=== PATIENT | male | born 1975 | race Two or more races ===

== ENCOUNTER 2018-06-08 15:17 | Emergency (ER) | payer MEDICAID ==
[2018-06-08 15:34] VITALS: BP 136/90
== END 2018-06-08 15:30 | disposition left against medical advice (07) ==
DX: Z53.21 Procedure and treatment not carried out due to patient leaving prior to being seen by health care provider (principal)

== ENCOUNTER 2018-06-09 20:56 | Emergency (ER) | payer MEDICAID ==
[2018-06-09 21:03] VITALS: BP 144/96
--- NOTE | 2018-06-09 21:20 | EDPHY ---
H & P Stated Complaint: Wants detox, last drink 12hrs ago, spider bite on L ankle Source: Patient Exam Limitations: No limitations - Personal History Current Tetanus Diphtheria and Acellular Pertussis (TDAP): No - Medical/Surgical History Hx Asthma: No Hx Chronic Respiratory Disease: No Hx Diabetes: No Hx Cardiac Disease: No Hx Renal Disease: No Hx Cirrhosis: No Hx Alcoholism: Yes Hx HIV/AIDS: No Hx Splenectomy or Spleen Trauma: No Other PMH: hernia surgery - Social History Smoking Status: Current some day smoker Time Seen by Provider: 06/09/18 21:19 HPI/ROS: HPI: This is a 42-year-old male who presents with Chief Complaint: Wants detox, last drink 12hrs ago, spider bite on L ankle Location: Left ankle Quality: Spider bite Duration: 2 days ago Signs and Symptoms: no shortness of breath at rest, no shortness of breath on exertion, no cough, no chest pain, no palpitations, no lower extremity edema, no wheezing, no orthopnea, no paroxysmal nocturnal dyspnea, no fever, no hemoptysis, no carpal pedal spasms Timing: Acute, constant Severity: Mild Context: Patient has a history of alcoholism, presents requesting transfer to [facility] detox facility for treatment. He reports that his last drink was approximately 12 hr ago. He reports that he feels an aura, nauseous and jittery. Denies history of alcohol withdrawal seizures. He also complains of a left ankle bite on the medial aspect of a spider approximately 2 days ago. He did not see the spider bite him. He woke up with the bite. He reports that it is crusty and hurts to touch. Denies homicidal ideation, suicidal ideation, hallucinations. Modifying Factors: Comment: ROS: A comprehensive 10 system review of systems is otherwise negative aside from elements mentioned in the history of present illness. MEDICAL/SURGICAL/SOCIAL HISTORY: Medical history: Alcoholism Surgical history: Herniorrhaphy Social history: Homeless. Smoker. Divorce. CONSTITUTIONAL: Pleasant cooperative, untidy adult male, awake and alert, no obvious distress HEENT: Atraumatic and normocephalic, PERRL, EOMI. Nares patent; no rhinorrhea; no nasal mucosal edema. Tympanic membranes clear. Oropharynx clear, no exudate and moist pink mucosa. Airway patent. No lymphadenopathy. No meningismus. Cardiovascular: Normal S1/S2, mild tachycardia, regular rhythm, without murmur rub or gallop. PULMONARY/CHEST: Symmetrical and nontender. Clear to auscultation bilaterally. Good air movement. No accessory muscle usage. ABDOMEN: Soft, nondistended, nontender, no rebound, no guarding, no peritoneal signs, no masses or organomegaly. No CVAT. EXTREMITIES: 2/2 pulses, strength 5/5, wearing wet malodorous shoes. no deformities, no clubbing, no cyanosis or edema. NEUROLOGICAL: no focal neuro deficits. GCS 15. SKIN: Warm and dry, 5 mm scabbed area on the left medial ankle,no surrounding erythema, no fluctuance, no discharge. no rash. Good capillary refill. (Annie Nelson) Constitutional: Initial Vital Signs Temperature (C) 36.4 C 06/09/18 21:00 Heart Rate 105 H 06/09/18 21:00 Respiratory Rate 18 06/09/18 21:00 Blood Pressure 144/96 H 06/09/18 21:00 O2 Sat (%) 97 06/09/18 21:00 O2 Delivery Mode Room Air Allergies/Adverse Reactions: melon Allergy (Verified 06/09/18 21:00) Opioids - Morphine Analogues Allergy (Verified 06/09/18 21:00) Home Medications: Medication Instructions Recorded Cephalexin [Keflex (*)] 500 mg PO TID #21 cap 06/09/18 Medical Decision Making ED Course/Re-evaluation: Vital signs reviewed and show mild tachycardia upon arrival. CIWA =2; given p.o. Librium 50 mg in the ER and Librium prepack when [facility]; cab was called Patient given Keflex for insect bite with local reaction due to high risk; no kendell abscess/cellulitis/necrosis. No signs of neurovascular compromise/tenting of skin/compartment syndrome/ extremities and joints examined above and below area of concern and are neurovascularly intact/alcohol withdrawal seizures/delirium tremens. This patient was seen under the supervision of my secondary supervising physician. I evaluated care for this patient independently. Discussed this patient with Dr. Espinoza. (Annie Nelson) Differential Diagnosis: Differential diagnosis includes but is not limited to intoxicant use, alcohol use, alcohol withdrawal seizures, delirium tremens, cellulitis, abscess. (Annie Nelson) Other Provider: The patient was evaluated and managed by the Physician Diesel Pile Driver Operator. My co- signature indicates that I have reviewed this chart and I agree with the findings and plan of care as documented. I am the secondary supervising physician. (Laura Espinoza) - Data Points Medications Given: Discontinued Medications Cephalexin (Keflex 500 Mg Prepack#4) 1 btl TAKEHOME EDNOW ONE PRN Reason: Protocol Stop: 06/09/18 21:49 Last Admin: 06/09/18 22:02 Dose: 1 btl Chlordiazepoxide (Librium 25 Mg Prepack#6) 1 btl TAKEHOME EDNOW ONE Stop: 06/09/18 21:51 Last Admin: 06/09/18 22:02 Dose: 1 btl Chlordiazepoxide HCl (Librium) 50 mg PO EDNOW ONE Stop: 06/09/18 21:50 Last Admin: 06/09/18 22:01 Dose: 50 mg Departure - Departure Disposition: Home, Routine, Self-Care Clinical Impression: Alcohol abuse, Alcohol withdrawal syndrome without complication, Insect bite of left ankle with local reaction Condition: Good Instructions: Chlordiazepoxide/Clidinium (By mouth), Abuse of Alcohol (ED), Alcohol Withdrawal (ED) Additional Instructions: Take antibiotic as directed until complete. Do not skip a dose Washes spider bite daily with antibacterial soap and water, pat dry, keep covered with clean sterile dressing until fully healed. Please refrain from drinking alcohol. You are medically cleared to be [facility] with Librium prepack. Referrals: Verito Gentile NP [Primary Care Provider] - As per Instructions [facility] [Outside] - As per Instructions Prescriptions: Cephalexin [Keflex (*)] 500 mg PO TID #21 cap
[2018-06-09] MEDS ORDERED: CEPHALEXIN 500MG PREPACK#4 BTL TAKEHOME ONE (21:48)
[2018-06-09] MEDS ORDERED: chlordiazePOXIDE 25 MG CAP PO ONE (21:49)
[2018-06-09] MEDS ORDERED: CHLORDIAZEPOXIDE 25MG PREPK#6 BTL TAKEHOME ONE (21:50)
== END 2018-06-09 22:28 | disposition home or self-care (01) ==
LOC: EEVIPCON 20:56
DX: S90.562A Insect bite (nonvenomous), left ankle, initial encounter (principal); F10.239 Alcohol dependence with withdrawal, unspecified

== ENCOUNTER 2018-06-12 22:07 | Inpatient (IN) | payer MEDICAID ==
--- NOTE | 2018-06-12 22:29 | EDPHY ---
H & P Stated Complaint: Sore on left ankle Time Seen by Provider: 06/12/18 22:07 HPI/ROS: CHIEF COMPLAINT: "Spider bite left ankle" HISTORY OF PRESENT ILLNESS: 42-year-old male arrives via ambulance for complaints of left dorsal medial lesion possible spider bite. He was seen the ER 3 days ago for acute alcohol detoxification and at that time there was mention of similar lesion present for 2 days prior. He does not remember being in the ER 3 days ago. States he is currently unable to bear weight on this. He was walking home from his job at [employer] but was able to walk any further secondary to pain He denies trauma such as fall or twisting injury. Denies fall from height. Denies fever chills. Denies nausea or vomiting. REVIEW OF SYSTEMS: 10 systems reviewed and negative with the exception of the elements mentioned in the history of present illness PAST MEDICAL & SURGICAL HISTORY: No pertinent medical or surgical history SOCIAL HISTORY: History of alcoholism last drink 3 days ago PHYSICAL EXAM (Prior to examination, patient consented to physical exam, hands were washed and my usual and customary physical exam procedures followed) 1) GENERAL: Well-developed, well-nourished, alert and oriented. Appears to be in no acute distress. 2) HEAD: Normocephalic, atraumatic 3) HEENT: Pupils equal, round, reactive to light bilaterally. Sclera anicteric. 4) NECK: Full range of motion, no meningeal signs. 5) LUNGS: Clear auscultation bilaterally, no wheezes, no rhonchi, no retractions. 6) HEART: Regular rate and rhythm, no murmur, no heave, no gallop. 7) ABDOMEN: No guarding, no rebound, no focal tenderness, negative McBurney's, negative Blas's, negative Rovsing's, negative peritoneal sign, 8) MUSCULOSKELETAL: Left anteromedial ankle furuncular lesion which is tender. There is no surrounding erythema, induration, crepitus. No lymphangitic streaking. He is exquisitely tender to palpation in the surrounding ankle and foot, screams in pain. High level of discomfort with dorsiflexion plantar flexion of the foot. The compartments are soft. 9) BACK: , no visual or palpable abnormality. 10) SKIN: No rash, no petechiae. 11) Psychiatric: Patient is oriented X 3, there is no agitation. DIFFERENTIAL DIAGNOSIS: In no particular include but limited to septic arthritis, compartment syndrome, abscess, cellulitis, necrotizing fasciitis, infectious tendinitis - Personal History Current Tetanus/Diphtheria Vaccine: Yes Current Tetanus Diphtheria and Acellular Pertussis (TDAP): Yes - Medical/Surgical History Hx Asthma: No Hx Chronic Respiratory Disease: No Hx Diabetes: No Hx Cardiac Disease: No Hx Renal Disease: No Hx Cirrhosis: No Hx Alcoholism: Yes Hx HIV/AIDS: No Hx Splenectomy or Spleen Trauma: No Other PMH: hernia surgery, right facial surgery, tonsillectomy - Social History Smoking Status: Current some day smoker Constitutional: Initial Vital Signs Temperature (C) 37.1 C 06/12/18 22:13 Heart Rate 98 06/12/18 22:13 Respiratory Rate 18 06/12/18 22:13 Blood Pressure 152/89 H 06/12/18 22:13 O2 Sat (%) 96 06/12/18 22:13 O2 Delivery Mode Room Air Allergies/Adverse Reactions: melon Allergy (Verified 06/12/18 22:17) Opioids - Morphine Analogues Allergy (Verified 06/12/18 22:17) Home Medications: Medication Instructions Recorded NK [No Known Home Meds] 06/12/18 ED Images - Extremities Feet Top: 1 - Lesion Medical Decision Making - Diagnostics Imaging Results: Imaging Impressions Ankle X-Ray 06/12/18 22:22 Impression: No definite fracture of the left ankle. Foot X-Ray 06/12/18 22:26 Impression: No fracture or degenerative changes of the left foot. Images reviewed myself ED Course/Re-evaluation: Reviewed patient's old medical records. Patient was also seen and examined by Dr. Rick Rodriguez in the ER. Specific etiology the patient's pain is incompletely clear at this time. Doubt compartment syndrome. We discussed well possible etiologies including, but not limited to, infectious tendinitis, necrotizing fasciitis, septic arthritis, septic arthritis. Patient unable to bear weight. Plan on admission. 11:13 p.m.: Consultation with Dr. Ventura who will admit patient - Data Points Laboratory Results: Laboratory Results 06/12/18 22:10 06/12/18 22:10 06/12/18 06/12/18 22:10 22:10 WBC 6.64 10^3/uL 10^3/uL (3.80-9.50) RBC 5.11 10^6/uL 10^6/uL (4.40-6.38) Hgb 17.4 g/dL g/dL (13.7-17.5) Hct 48.6 % % (40.0-51.0) MCV 95.1 fL fL (81.5-99.8) MCH 34.1 pg pg (27.9-34.1) MCHC 35.8 g/dL g/dL (32.4-36.7) RDW 12.9 % % (11.5-15.2) Plt Count 125 10^3/uL L 10^3/uL (150-400) MPV 9.3 fL fL (8.7-11.7) Neut % (Auto) 50.8 % % (39.3-74.2) Lymph % (Auto) 33.3 % % (15.0-45.0) [place] % (Auto) 13.3 % H % (4.5-13.0) Eos % (Auto) 1.7 % % (0.6-7.6) Baso % (Auto) 0.6 % % (0.3-1.7) Nucleat RBC Rel Count 0.0 % % (0.0-0.2) Absolute Neuts (auto) 3.38 10^3/uL 10^3/uL (1.70-6.50) Absolute Lymphs (auto) 2.21 10^3/uL 10^3/uL (1.00-3.00) Absolute Monos (auto) 0.88 10^3/uL H 10^3/uL (0.30-0.80) Absolute Eos (auto) 0.11 10^3/uL 10^3/uL (0.03-0.40) Absolute Basos (auto) 0.04 10^3/uL 10^3/uL (0.02-0.10) Absolute Nucleated RBC 0.00 10^3/uL 10^3/uL (0-0.01) Immature Gran % 0.3 % % (0.0-1.1) Immature Gran # 0.02 10^3/uL 10^3/uL (0.00-0.10) ESR 3 MM/HR MM/HR (0-15) Sodium 142 mEq/L mEq/L (135-145) Potassium 4.0 mEq/L mEq/L (3.3-5.0) Chloride 104 mEq/L mEq/L (97-110) Carbon Dioxide 24 mEq/l mEq/l (22-31) Anion Gap 14 mEq/L mEq/L (6-14) BUN 13 mg/dL mg/dL (7-23) Creatinine 1.1 mg/dL mg/dL (0.7-1.3) Estimated GFR > 60 Glucose 93 mg/dL mg/dL (70-100) Calcium 9.5 mg/dL mg/dL (8.5-10.4) C-Reactive Protein < 5.0 mg/L mg/L (<10.0) Procalcitonin Pending Ethyl Alcohol 312 mg/dL H mg/dL (0-10) Medications Given: Discontinued Medications Cefazolin Sodium/Dextrose (Ancef 1 Gm (Premix)) 50 mls @ 200 mls/hr IV EDNOW ONE PRN Reason: Protocol Stop: 06/12/18 22:50 Last Admin: 06/12/18 22:56 Dose: 50 mls Departure - Departure [facility] Acute Condition: Fair Referrals: NONE *PRIMARY CARE P,. [Unknown] - As per Instructions
[2018-06-12 22:44] LABS: PLATELET COUNT 125 10^3/uL (150-400)
[2018-06-13] MEDS ORDERED: ACETAMINOPHEN 325 MG TAB PO PRN (00:06)
[2018-06-13] MEDS ORDERED: ONDANSETRON 4 MG/2 ML VIAL IVP PRN (00:06)
[2018-06-13] MEDS ORDERED: diphenhydrAMINE 25 MG CAP PO PRN (00:06)
[2018-06-13] MEDS ORDERED: ONDANSETRON DISINTEGRATING 4 MG TAB PO PRN (00:06)
[2018-06-13] MEDS: NS 1,000 ML IV SCH ×3 (01:13→21:42)
[2018-06-13] MEDS: LORazepam 2 MG/ML INJ IVP PRN ×5 (01:13→18:30)
[2018-06-13] MEDS: HYDROCODONE/APAP 5/325 TAB PO PRN ×3 (02:12→14:36)
--- NOTE | 2018-06-13 05:17 | GHP ---
DATE OF ADMISSION: 06/12/2018 Patient provides history, is a fair historian. EMR was reviewed and case discussed with ED provider. CHIEF COMPLAINT: Left ankle pain. HISTORY OF PRESENT ILLNESS: This is a pleasant 42-year-old gentleman with past medical history signi ficant for alcohol dependence and hyperlipidemia, who presents to the emergency department today via EMS after he was trying to walk home from work and was unable to walk any longer due to severe sharp pain in the dorsum of his left foot, ankle, and distal lower leg. The patient reports approximately 5 days ago he developed a wound over his left ankle. He states bashir t he has had increasing erythema, swelling, pain, and drainage since that time. Per ED note, the patient was seen in the emergency department and monitored for alcohol intoxication and had reported the wound there several days prior to that. The patient is unsure if he had an inju ry or it was a spider bite or some other insect bite. He reports that he has had increasing drainage , surrounding erythema, subjective fevers and chills at home. He has not taken any [id number] medications for pain control. He reports the pain is diffuse and exquisite even superficially on the dorsum of the foot and just proximally past the wound on his lower extremity. The patient denies an y calf or lower leg swelling. REVIEW OF SYSTEMS: GI: Patient reports diffuse abdominal discomfort that has resolved with a dose o f Garland received on the floor. CV: Patient reports occasional chest pain while at rest, none curren tly. Ten systems reviewed and otherwise negative except as above. ALLERGIES: Melons and morphine. HOME MEDICATIONS: None. PAST MEDICAL HISTORY: 1. Patient reports an episode of a seizure secondary to Wellbutrin. He denies any history of withdr awal seizures. 2. Alcohol dependence and ER visits for intoxication. 3. Hyperlipidemia, not on therapy. PAST SURGICAL HISTORY: Significant for hernia repair, right facial reconstruction, tonsillectomy, ad enoidectomy. FAMILY HISTORY: Significant for diabetes, hypertension, cirrhosis (nonalcoholic), COPD, CHF, cancer, CVA. Grandfather with OK at age 54. SOCIAL HISTORY: Patient does smoke occasional cigarettes. He also drinks heavily. He is employed a nd works at [employer]. He does not have any history of IV drug use, but admits to using what was report ed to be cocaine several days ago. CODE STATUS: Full. PHYSICAL EXAMINATION: VITAL SIGNS: Upon arrival to the ED, blood pressure 152/89, heart rate is 98, respiratory rate 18, O2 saturation 96% on room air, temperature 37.1. Current vital signs available , blood pressure 125/83, heart rate 76, respiratory rate 16, O2 saturation 96% on room air, temperatu re 36.6. GENERAL: No acute distress while lying in bed. Patient is a pleasant adult gentleman who is lying quietly in bed. HEAD: Normocephalic, atraumatic. EYES: Extraocular muscles are intact. Pupils equal, round, decreased reactivity to light bilaterally, but symmetric. No scleral icterus or conjunctival injection. ENT: Mucous membranes appear moist. No oropharyngeal erythema or exudates . NECK: Supple. Trachea midline. Patient does have enlargement of the submandibular lymph node wi th some tenderness to palpation, but no enlargement seen by view of oropharynx. CV: Regular rate an d rhythm, slightly bradycardic in the 60s. No murmurs, rubs, or gallops appreciated. RESPIRATORY: Unlabored breathing. Lungs are clear to auscultation bilaterally. No wheezes, rales, or rhonchi. A BDOMEN: Positive bowel sounds. Soft, nontender to palpation. No rebound, guarding, or masses appre ciated. : No suprapubic tenderness to palpation. No Watson catheter in place. EXTREMITIES: Sherry ent moves both upper extremities and right lower extremity without any difficulties. The left lower extremity causes significant pain with any kind of movement. There is limited range of motion also d ue to pain. The patient is able to dorsiflex with limitation due to pain. He has exquisite tenderne ss to palpation even with light touch on his foot over his ankle in the distal left lower extremity. There is no calf swelling or lower extremity pain. Soft tissue is without any tension and is soft. Patient has 2+ pedal pulses present and symmetric. Cap refill is less than 2 seconds. There is an ulcerated scabbed lesion right in the middle of the dorsal ankle. There is no drainage. The skin banda rrounding the lesion over the ankle proximal to the ankle as well as the foot there is just a faint h int of erythema, but there is no induration or fluctuance present. NEUROLOGIC: Sensation is intact to both feet. Patient with hypersensitivity to touch over the foot, ankle, and distal lower extremit y on the left. Skin wound as noted above. Neuro grossly nonfocal. No facial drooping. Moves all e xtremities as noted above. PSYCHIATRIC: Patient does appear a little bit anxious, but he is pleasan t and cooperative. LABORATORY STUDIES: WBC 6.64, H and H is 17.4 and 48.6, MCV of 95.1, platelet count 125, no bands. ESR of 3. Sodium is 142, potassium 4.0, chloride 104, CO2 24, anion gap 14, BUN 13, creatinine is 1. 1, GFR greater than 60, glucose 93, calcium 9.5. CRP is less than 5. Procalcitonin 0.05. Ethyl alc ohol 312. IMAGING: Ankle and foot x-rays image and report reviewed myself, negative for any evidence of a frac ture in the left ankle and no fracture or degenerative change in the left. Normal alignment. ASSESSMENT AND PLAN: Pleasant 42-year-old gentleman with a history of alcohol dependence who present s to the emergency department with a five-day history of a left dorsum dorsal ankle wound and subsequ ent development of severe pain with movement, ambulation, flexion, or extension. 1. Left ankle pain. Differential diagnosis including strain versus tenosynovitis versus a celluliti s. The patient was given a dose of cefazolin in the emergency department. He has no white count. E SR and CRP are negative, but he does have an area of erythema that extends surrounding this wound and he is quite exquisitely tender. We will continue with cefazolin for coverage at this point. Blood cultures were drawn in the emergency department. We will follow. We will have the patient elevate h is left foot as tolerated. Continue antibiotics as noted above. Pending reassessment in the morning , consideration for orthopedic consultation versus additional imaging. Garland available p.r.n. pain. 2. Alcohol dependence. Patient's alcohol level is elevated. Ativan will be available p.r.n. At th is time does not appear to be withdrawing, but will monitor closely and add a CIWA protocol if indica eun. 3. Thrombocytopenia, likely related to patient's alcohol consumption and dependence. No evidence of active bleeding. Will continue to monitor. Holding anticoagulation pending reassessment in the [facility] for potential need for surgical assessment. 4. History of seizure, which patient reports was due to Wellbutrin. Unsure if he was also imbibing in alcohol at this time as well. The patient is no longer on Wellbutrin. His alcohol level is eleva eun, but will place on CIWA protocol if indicated after reassessment. 5. Hyperlipidemia. The patient is not currently on statins. Patient should follow up with his [facility] care provider. 6. History of chest pain while at rest. The patient currently denies any active chest pain. Overal l, he is low risk for acute coronary syndrome, but will monitor. Again, will have patient follow up with his PCP for his reported history of hyperlipidemia. 7. Fluid, electrolyte, nutrition. Intravenous fluids for supplementation. N.p.o. except for ice ch ips. Monitor electrolytes, replace if needed. 8. Core status is full. 9. Disposition. Patient admitted to observation status on the medical floor at this time for contin ued antibiotics and repeat assessment for potential imaging versus surgical consultation. 10. Prophylaxis. SCDs to the right leg only as tolerated. Monitor closely for any evidence of alco hol withdrawal should the patient require CIWA protocol placement. /[id number]/MODL
[2018-06-13 05:23] LABS: PLATELET COUNT 100 10^3/uL (150-400)
[2018-06-13] MEDS: ceFAZolin 0.5 GM in NS 50 ML IV SCH ×2 (06:32→14:36)
[2018-06-13] MEDS: NICOTINE 14 MG/24 HR PATCH TD SCH (09:17)
[2018-06-13] MEDS ORDERED: FLUMAZENIL 0.5 MG/5 ML MDV IVP PRN (12:52)
--- NOTE | 2018-06-13 14:04 | WOCRNPDOC ---
WOCRN Advanced Assessment Note - Skin Integrity Problem, Advanced Assess Left Anterior Ankle Dressing Type: Allevyn Life Dressing Description: Clean/Dry, Intact Exudate Amount: Scant Exudate Characteristic(s): Sanguinopurulent Integumentary Issue Intervention: Visualized Under Dressing Maicol Wound Tissue: Erythema, Erythema Marked by Wound RN, Painful/Tender Wound Edges: Epibole Site Measurement - Head-to-Toe Length X Width X Depth (cm): 0.4x0.3x0.3 Skin Integrity Problem Comment: Wound of unknow etiology with scar tissue/hard maicol wound tissue. Wound and entire left lower leg is painful out of proportion to clinical findings. Patient really was unable to let wound RN fully assess wound due to pain, although the area was gently cleaned with water and papertowel to try and visualize wound bed. There is maicol wound erythema to 1 cm and it does not appear cellulitic. Michelle Tolentino and Katerine notifed. Dressing was replaced. Ultrasound does not reveal any abcess so silvasorb and foam secondary dressing will be written for. Wound care will follow later this week/early next week if patient is still in hospital.
[2018-06-13] MEDS: FAMOTIDINE 20 MG TAB PO SCH ×2 (14:36→20:41)
--- NOTE | 2018-06-13 15:44 | ASMTCMCOM ---
CM Note CM Note Notes: Pt in for ankle wound after he could no longer walk on leg. Wound care following. No therapies ordered. Chart review indicates pt works at [employer]. Pt in [facility] ED 06/09/18 and 06/08/18 for ETOH detox, CIWA today 20. CM to follow. Date Signed: 06/13/2018 03:44 PM Electronically Signed By:KEREN Flores
[2018-06-13] MEDS: THIAMINE HCL 500 MG in NS 100 ML IV SCH (16:15)
--- NOTE | 2018-06-13 18:02 | HOSPPROG ---
Hospitalist Progress Note Assessment/Plan: The patient is a 42-year-old male with PMH alcoholism who was admitted for acute left ankle pain and nonhealing wound. ASSESSMENT/PLAN: Acute left ankle pain Acute left ankle wound Alcohol withdrawal, acute Alcohol dependence -initiate CIWA protocol. Since CIWA score is high, transfer to ICU for frequent monitoring. -IV cefazolin. -If pain does not improve, may consider MRI L ankle to r/o osteomyelitis. XR ankle was unremarkable. -Counseled on alcohol cessation. 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 -Answered pt's questions. -Ordered US today - reviewed results - no abscess. -Discussed case w/ RNs, Wound care. -CM consult for alcohol cessation ongoing support/resources. VTE prophylaxis: SCDs. Code Status: Full. Status: Changed in patient for greater than 2 midnight stay. Disposition: ICU with discharge anticipated after a few days to a week, depending on how pt does with withdrawal/detox ____ SUBJECTIVE: Pt c/o severe pain in L ankle. Pt c/o withdrawal symptoms. OBJECTIVE: Physical Exam: General: The patient is a male who is alert and in no acute distress. HEENT: normocephalic, extraocular movements intact, conjunctivae clear. Mucous membranes moist. Neck: trachea midline, no visible masses. Abd: soft and nondistended. Musculoskeletal: Normal muscle tone/bulk. Neuro: cranial nerves II XII grossly intact. Intact gross motor and sensory function. Psych: Appropriate mood and appropriate affect. Skin: No pallor. No petechiae. No erythema of left lower leg. +dressing noted anterior left ankle, CDI Heme/lymph: No peripheral edema at bilateral lower extremities. Labs/Imaging/Other Tests: Personally reviewed/interpreted. X-ray left ankle and foot-no fracture or dislocation. No evidence of osteomyelitis. Ultrasound left lower extremity-no abscess. Objective: Vital Signs Temp Pulse Resp BP Pulse Ox 36.6 C 80 16 138/83 H 94 06/13/18 16:00 06/13/18 16:00 06/13/18 16:00 06/13/18 16:00 06/13/18 16:00 - Time Spent With Patient Time Spent with Patient: greater than 35 minutes Time Spent with Patient: Greater than 35 minutes spent on this patients care, greater than 50% of time spent counseling, educating, and coordinating care regarding the above mentioned plan. ICD10 Worksheet Patient Problems: Problems Problem Status Onset Alcohol withdrawal Acute - ICD10 Problem Qualifiers (1) Alcohol withdrawal Qualifiers: Complication of substance-induced condition: uncomplicated Qualified Code(s ): F10.230 - Alcohol dependence with withdrawal, uncomplicated
[2018-06-14] MEDS: NS 1,000 ML IV SCH (05:21)
[2018-06-14] MEDS: FAMOTIDINE 20 MG TAB PO SCH ×2 (09:15→20:04)
[2018-06-14] MEDS: NICOTINE 14 MG/24 HR PATCH TD SCH (09:15)
[2018-06-14] MEDS: THIAMINE HCL 500 MG in NS 100 ML IV SCH (09:17)
[2018-06-14] MEDS: LORazepam 2 MG/ML INJ IVP PRN ×5 (09:26→23:48)
[2018-06-14] MEDS: HYDROCODONE/APAP 5/325 TAB PO PRN ×4 (09:26→23:56)
--- NOTE | 2018-06-14 10:37 | PDMN ---
Medical Necessity Medical necessity: Changed from Obs to IP 06/13/18 per and [facility] M-595 ( Substance- Related Disorders); los > 2mn; eval and tx alcohol withdrawal with CIWA 20, tremor, auditory and visual hallucinations, and agitation as well as non healing wound to L ankle; requiring close monitoring in ICU, CIWA protocol, IV ABX, and IVF; hx of seizures.
--- NOTE | 2018-06-14 15:08 | ASMTCMCOM ---
CM Note CM Note Notes: Patient looking for resources [place]. He had been in the [facility] coordinated entry but then left town. This CM encouraged him to return to their system in order to get into [place] housing. On discharge patient will need Residential bed; 2 bus tokens- for [facility]; List of warming Shelters or a phone# he can call. Patient still going through [facility] W/D. Date Signed: 06/14/2018 03:07 PM Electronically Signed By:Amanda Murrieta LCSW
--- NOTE | 2018-06-14 19:16 | HOSPPROG ---
Hospitalist Progress Note Assessment/Plan: The patient is a 42-year-old male with PMH alcoholism who was admitted for acute left ankle pain and nonhealing wound. ASSESSMENT/PLAN: Acute left ankle pain Acute left ankle wound Alcohol withdrawal, acute Alcohol dependence -initiated CIWA protocol. Since pt was doing well and did not require too much Ativan overnight, downgraded to med surg. -IV cefazolin. -Pain in leg not improved. MRI ankle tomorrow -Counseled on alcohol cessation. 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 -Answered pt's questions. -Discussed case w/ RNs. -CM consult for alcohol cessation ongoing support/resources. -resume home meds (supplements) per pt request VTE prophylaxis: SCDs. Code Status: Full. Status: Changed in patient for greater than 2 midnight stay. Disposition: medsurg with discharge anticipated after a few days to a week, depending on how pt does with withdrawal/detox ____ SUBJECTIVE: Pt c/o severe pain in L ankle. Pt c/o withdrawal symptoms. OBJECTIVE: Physical Exam: General: The patient is a male who is alert and in no acute distress. HEENT: normocephalic, extraocular movements intact, conjunctivae clear. Mucous membranes moist. Neck: trachea midline, no visible masses. Abd: soft and nondistended. Musculoskeletal: Normal muscle tone/bulk. Neuro: cranial nerves II XII grossly intact. Intact gross motor and sensory function. Psych: Appropriate mood and appropriate affect. Skin: No pallor. No petechiae. No erythema of left lower leg. +dressing noted anterior left ankle, CDI Heme/lymph: No peripheral edema at bilateral lower extremities. Labs/Imaging/Other Tests: Personally reviewed/interpreted. X-ray left ankle and foot-no fracture or dislocation. No evidence of osteomyelitis. Ultrasound left lower extremity-no abscess. Objective: Vital Signs Temp Pulse Resp BP Pulse Ox 36.7 C 63 14 137/85 H 94 06/14/18 15:59 06/14/18 15:59 06/14/18 15:59 06/14/18 15:59 06/14/18 15:59 06/13/18 06/14/18 06/15/18 05:59 05:59 05:59 Intake Total 2298 1002 Output Total 1100 Balance 2298 -98 ICD10 Worksheet Patient Problems: Problems Problem Status Onset Alcohol withdrawal Acute - ICD10 Problem Qualifiers (1) Alcohol withdrawal Qualifiers: Complication of substance-induced condition: uncomplicated Qualified Code(s ): F10.230 - Alcohol dependence with withdrawal, uncomplicated
[2018-06-14] MEDS ORDERED: TETRAHYDROZOLINE 0.05% 15 ML OPHT.BTL EACHEYE PRN (20:18)
[2018-06-14] MEDS ORDERED: IBUPROFEN 200 MG TAB PO PRN (20:18)
[2018-06-14] MEDS ORDERED: GADOBUTROL 10 ML VIAL IVP ONE (21:27)
[2018-06-15] MEDS: NICOTINE 14 MG/24 HR PATCH TD SCH (08:39)
[2018-06-15] MEDS: THIAMINE HCL 500 MG in NS 100 ML IV SCH (08:39)
[2018-06-15] MEDS: FAMOTIDINE 20 MG TAB PO SCH ×2 (08:39→20:47)
[2018-06-15] MEDS: HYDROCODONE/APAP 5/325 TAB PO PRN ×3 (08:40→20:52)
[2018-06-15] MEDS: LORazepam 2 MG/ML INJ IVP PRN ×2 (08:40→12:01)
[2018-06-15] MEDS ORDERED: Herbals/Supplements -Info Only PO SCH (09:00)
--- NOTE | 2018-06-15 13:43 | ASMTCMCOM ---
CM Note CM Note Notes: Chart reviewed . Spoke to patient at great length,he was doing well working at [employer], connected to the [employer] and was going to school. He reports he was arrested and had to go back to [place] and lost his space at the [employer]. He is very depressed and hopeless. I have placed a call to our behavioural Health Nurse Nohemy Villalpando. I will provide him with the alcohol resource packet and will look for some clothing for him. I will provide hime with resources for warm food as well. CM available should other needs arise. Plan: Likely dc to custodial when medically cleared for discharge to home. Date Signed: 06/15/2018 01:42 PM Electronically Signed By:Kerry Claire RN
[2018-06-15] MEDS ORDERED: LORazepam 1 MG TAB PO PRN ×2 (18:21→18:40)
--- NOTE | 2018-06-15 19:21 | HOSPPROG ---
Hospitalist Progress Note Assessment/Plan: The patient is a 42-year-old homeless male with PMH alcoholism who was admitted for acute left ankle pain and nonhealing wound. ASSESSMENT/PLAN: Acute left ankle pain, improved -2/2 tendonitis in ankle/foot Acute left ankle wound - treated, healing Alcohol withdrawal, acute -resolved Alcohol dependence Homelessness Psychiatric disorder with anxiety and insomnia -DC CIWA protocol, despite pt's protests that he needs Ativan, as he is clearly not in withdrawal. If he does withdraw, he can get clonidine instead of Ativan tonight. Explained to pt that we only give Ativan or Librium for acute withdrawal and it is no longer needed. Explained it has undesirable retirement side effects. -Start Wellbutrin for anxiety -- note that he wants the 12 hr version bc he has insomnia. -Got IV cefazolin x 3 days. Switch to po Keflex QID x 2 days for 5 days total Abx. -Counseled on alcohol cessation. 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 Specifically, he is homeless and has psychiatric illness including extreme anxiety and has poor support. -Recommend that pt complete the process of getting established with [facility] because it is very important he get psychiatric care. -Answered pt's questions. -Discussed case w/ RNs. -DC IV meds. -CM consulted for alcohol cessation ongoing support/resources. They are looking into getting him to a homeless alf in [facility]. -Encouraged pt to ambulate. I suspect he can walk more, but he is VTE prophylaxis: SCDs. Code Status: Full. Status: Inpatient. Disposition: DC tomorrow to homeless alf. ____ SUBJECTIVE: Pt c/o continued pain in L ankle but it is improved. He has walked to the bathroom and back with a cane. He says he is in withdrawal still, and once "was in withdrawal for 10 days." He feels he is hallucinating -- hearing sounds and that colors on TV look brighter than normal. He insists he needs Ativan for anxiety. OBJECTIVE: Physical Exam: General: The patient is a calm male who is alert and in no acute distress. HEENT: normocephalic, extraocular movements intact, conjunctivae clear. Mucous membranes moist. Neck: trachea midline, no visible masses. Abd: soft and nondistended. Musculoskeletal: Normal muscle tone/bulk. Neuro: cranial nerves II XII grossly intact. Intact gross motor and sensory function. Psych: Appropriate mood and flat affect. Skin: No pallor. No petechiae. No erythema of left lower leg. +dressing noted anterior left ankle, CDI Heme/lymph: No peripheral edema at bilateral lower extremities. Labs/Imaging/Other Tests: Personally reviewed/interpreted. X-ray left ankle and foot-no fracture or dislocation. No evidence of osteomyelitis. Ultrasound left lower extremity-no abscess. MRI L ankle - no osteomyelitis. +tendon inflammation. Objective: Vital Signs Temp Pulse Resp BP Pulse Ox 36.5 C 69 16 129/85 H 96 06/15/18 16:09 06/15/18 16:09 06/15/18 16:09 06/15/18 16:09 06/15/18 16:09 06/14/18 06/15/18 06/16/18 05:59 05:59 05:59 Intake Total 2298 1302 500 Output Total 1100 1000 Balance 2298 202 -500 - Time Spent With Patient Time Spent with Patient: greater than 35 minutes Time Spent with Patient: Greater than 35 minutes spent on this patients care, greater than 50% of time spent counseling, educating, and coordinating care regarding the above mentioned plan. - Pending Discharge Pending Discharge Within 24 Hours: Yes Pending Discharge Date: 06/16/18 Pending Discharge Time: 11:00 ICD10 Worksheet Patient Problems: Problems Problem Status Onset Alcohol withdrawal Acute - ICD10 Problem Qualifiers (1) Alcohol withdrawal Qualifiers: Complication of substance-induced condition: uncomplicated Qualified Code(s ): F10.230 - Alcohol dependence with withdrawal, uncomplicated
[2018-06-15] MEDS: CEPHALEXIN 500 MG CAP PO SCH (23:30)
[2018-06-16 08:07] VITALS: BP 128/86
[2018-06-16] MEDS: FAMOTIDINE 20 MG TAB PO SCH (08:50)
[2018-06-16] MEDS: CEPHALEXIN 500 MG CAP PO SCH (08:50)
[2018-06-16] MEDS: NICOTINE 14 MG/24 HR PATCH TD SCH (08:51)
[2018-06-16] MEDS ORDERED: THIAMINE HCL 100 MG TAB PO SCH (09:00)
[2018-06-16] MEDS ORDERED: buPROPion SR 150 MG TAB PO SCH (09:00)
--- NOTE | 2018-06-16 10:19 | ASMTLACE ---
[facility]CAR Length of stay for Answers: 3 days current admission Acuity / Level of Answers: Yes Care: Did the patient have an inpatient admission? Comorbidities - select Answers: Opioid dependence all that apply / Chronic pain Other Notes: HLD; Seizures # of Emergency department Answers: 3-4 visits in the last 6 months Social determinants Answers: History of substance abuse (ETOH, street drugs, prescription drugs, etc.) Homelessness (street, jail) Mental health diagnosis (anxiety, depression, pers onality disorders, etc.) Score: 23 Date Signed: 06/16/2018 10:19 AM Electronically Signed By:Bonnie Bosch RN
--- NOTE | 2018-06-16 10:22 | ASMTDCNOTE ---
Case Management Discharge Discharge Order Complete? Answers: Yes Followup Appointment 06/17/2018 02:20 PM Patient to Obtain Answers: Independently Medications Transportation Arranged Answers: Bus Tokens Discharge Comments Notes: Patient discharged to streets. I gave him a bus voucher to go to [facility] to re-engage w services. He will do this and then spend the night at the [facility]; I reserved [facility] bed for him. He has an appointment at the [facility] tomorrow 06/17 @ 2:05, as well. Date Signed: 06/16/2018 10:21 AM Electronically Signed By:Bonnie Bosch RN
--- NOTE | 2018-06-16 11:00 | PDDCSUM ---
Discharge Summary Discharge Summary: Date of Admission: 06/13/2018 Date of Discharge: 06/16/2018 Consults: N/A Followup: PCP, appt schedule for tomorrow Hospital Course Problem List: Acute left ankle pain, improved -2/2 tendonitis in ankle/foot Acute left ankle wound - treated, healing Alcohol withdrawal, acute -resolved Alcohol dependence Homelessness Psychiatric disorder with anxiety and insomnia -DC CIWA protoco -Start Wellbutrin for anxiety -- will defer prescription to PCP who he has f/u appt tomorrow -Got IV cefazolin x 3 days. Switch to po Keflex QID x for 5 days total Abx. -Counseled on alcohol cessation. 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 He has other psychosocial concerns which he discussed more w/ CM and LEAD NITRATE PROCESSOR. Specifically, he is homeless and has psychiatric illness including extreme anxiety and has poor support. -Recommend that pt complete the process of getting established with [facility] because it is very important he get psychiatric care. -Answered pt's questions. -CM consulted for alcohol cessation ongoing support/resources.D[place] [facility]. Time spent on discharge was >35 minutes with >50% of time spent on patient counseling and education
== END 2018-06-16 11:47 | disposition home or self-care (01) | DRG 351 ==
LOC: EDUNIT# → F3N 06-13 01:01 → OBSVTOIN 06-13 15:49 → F2N 06-13 19:44 → F1N 06-14 16:06
PROVIDERS: ADMIT Family Medicine; ATTEND Family Medicine
DX: M77.52 Other enthesopathy of left foot and ankle (principal); E78.5 Hyperlipidemia, unspecified; F10.239 Alcohol dependence with withdrawal, unspecified; F41.9 Anxiety disorder, unspecified; G47.00 Insomnia, unspecified; Y90.8 Blood alcohol level of 240 mg/100 ml or more; Z59.0 Homelessness
CPT/HCPCS: 96374; 97161-GP; A9585; G0480; J0690; J2060; J2405; J3411